=== PATIENT | male | born 1975 | race African-American/Black ===

== ENCOUNTER 2016-05-09 14:28 | Observation (INO) | payer OTHER ==
--- NOTE | ~2016-05-09 | CR72 ---
[facility] A Service of [facility] & [facility] RADIOLOGY TEXT RESULTS PATIENT: SIMÓN PIRES LOCATION: [facility] [id number] : [birth year] UNIT #: [id number] AGE: [address]: Lexx Dhaliwal MD SEX: M ORDER DR: [id number] [facility] [address] [place], [place] [address] [id number] I MR#: [id number] Acc #: [id number] NAME: SIMÓN PIRES : 1975 SEX: M STUDY DATE/TIME: 05/09/2016 14:27 UNIT: [facility] ROOM: 67278 STUDY DESCRIPTION: CR Chest Single View Portable Attending Physician: Lexx Dhaliwal M.D. Ordering Physician: Terrence Santos D.O. Primary Care Physician: Nick Worrell M.D. MEDICAL IMAGING REPORT This report is preliminary unless electronic signature is present EXAM Portable chest HISTORY Shortness of air, chest pain, syncope, onset today. FINDINGS A single AP portable view of the chest shows both lungs to be clear. The heart is normal in size. The mediastinal contour is normal. No significant bone abnormalities are seen. IMPRESSION Normal portable chest. Dictated by... Kinjal Perry M.D. THIS IS AN ELECTRONICALLY VERIFIED REPORT Kinjal Perry M.D. at 05/10/2016 10:04 AM Shy TD: 05/10/2016 06:39 JOB #: [id number] MEDICAL IMAGING REPORT Page 1 of 1 COPY
--- NOTE | ~2016-05-09 | TH ---
Unit #: [id number] #: [id number] Patient: SIMÓN PIRES [id number] [address] [address] [id number] I MR#: [id number] NAME: SIMÓN PIRES : 1975 SEX: M STUDY DATE/TIME: UNIT: C5B ROOM: 554 STUDY DESCRIPTION: Nuclear Study Attending Physician: Lexx Dhaliwal M.D. Primary Care Physician: Nick Worrell M.D. CARDIOLOGY REPORT EXAM Exercise Cardiolite Stress Test - Nuclear Portion PROCEDURE Using technetium 99m labeled Cardiolite, rest and stress SPECT images were obtained. Multiple SPECT images were obtained in various views including horizontal and vertical long axis and short axis views of the left ventricle. Images were obtained by gated SPECT method. The patient was administered 11.77 mCi of Cardiolite at rest. The patient was administered 35.7 mCi of Cardiolite at peak exercise. Total exercise time is 6 minutes 10 seconds. On the stress images, there is normal perfusion noted. The rest images show normal perfusion. Comparing rest and stress images, there no stress-induced ischemia noted. The left ventricular ejection fraction is calculated to be 49%. There is mild global hypokinesis seen. The left ventricular cavity is moderately dilated, both at rest and post stress. CONCLUSION 1. No stress-induced ischemia noted. 2. The left ventricular ejection fraction is calculated to be 49%. 3. There is moderate left ventricular cavity dilatation, both at rest and post stress. 4. Suspicion for mild dilated nonischemic cardiomyopathy. Dictated by... Sammy Cassidy TD: 05/10/2016 11:31 JOB #: [id number] Unit #: [id number] #: [id number] Patient: SIMÓN PIRES CARDIOLOGY REPORT Page 1 of 1 X Anastasia Ritchie MD <ELECTRONICALLY SIGNED> 09/04/16 1429 CARDIOLOGY REPORT
--- NOTE | ~2016-05-09 | CO ---
Unit #: [id number] #: [id number] Patient: SIMÓN PIRES [id number] [facility] [address] [place], [place] [address] [id number] I MR#: [id number] NAME: SIMÓN PIRES ROOM: 554 Age: 40 Sex: M Admission Date: 05/09/2016 : 1975 Attending Physician: Lexx Dhaliwal M.D. Primary Care Physician: Nick Worrell M.D. Consultation Date: 05/10/2016 CONSULTATION REPORT PRIMARY CARE PHYSICIAN REASON FOR CONSULTATION Syncope. PATIENT IDENTIFICATION This is a 40-year-old, right-handed, male, who was evaluated in room 554 at [facility]. SOURCE OF INFORMATION The patient and evaluation initiated by Cardiology. PROBLEM LIST 1. History of congestive heart failure. 2. Hypertension. 3. Hyperlipidemia. 4. Binge drinking of alcohol. 5. Occasional cocaine. 6. Former smoker. HISTORY OF PRESENT ILLNESS This is a 40-year-old gentleman, who actually came yesterday to the emergency room with several syncopal episodes. He reports that his father on 04/23 and since then he has been really depressed. He went on heavy binge drinking on Tuesday and also did "line of cocaine." Yesterday, he was not feeling well, so he called his fiancee and now wanted to go there and he reached there and then he had several episodes of syncope, was in and out for several minutes. The family reported shaking type activity. I really do not have any of those records or family members available. He is fine right now. He is awake and alert and fully oriented. He is otherwise unremarkable. Cardiology is doing workup on him because of his cardiac issues and want to make sure this is not a primary cardiac issue. His vital signs have been stable. He denies change in any medication. He denies any prior seizures. He has not been drinking rather he has been depressed. He has never had any other passing out episodes or withdrawal. Unit #: [id number] #: [id number] Patient: SIMÓN PIRES PAST MEDICAL HISTORY As discussed above. PAST SURGICAL HISTORY As discussed above. ALLERGIES None reported. HOME MEDICATIONS Apparently are Coreg, lisinopril, Norvasc, simvastatin, others ? FAMILY HISTORY Mother had some sort of brain aneurysm. SOCIAL HISTORY He has a fiancee. He has some legal issues. He denies tobacco use. Acknowledges occasional rather binge drinking and he said that he did cocaine after such a long time. REVIEW OF SYSTEMS Otherwise, pretty much unremarkable. No weight issues. No fever, chills, rigor, or sweats. HEENT: No headaches. No double vision, earache, runny nose, or sore throat. CARDIOVASCULAR: No chest pain, clubbing, cyanosis, orthopnea, or palpitation. PULMONARY: No shortness of air, cough, or expectoration. GASTROINTESTINAL: No nausea, vomiting, diarrhea, or constipation. GENITOURINARY: No genitourinary symptoms. EXTREMITIES: No other extremity problems. BACK: No back problem. PSYCHIATRIC: No psychotic issue. NEUROLOGIC: No neurologic issue. No other hematologic, dermatologic, or endocrine issues. He right now is denying any new cardiac issues, but he has had cardiac problems and he may have had some chest discomfort. PHYSICAL EXAMINATION VITAL SIGNS: Temperature 98 degrees Fahrenheit, pulse is 56, respirations 17, blood pressure is 140/91, weight of 235 pounds. BMI was 32. NEUROLOGIC: The patient is awake. He is alert. He is oriented. He can name and he can follow commands. No right or left confusion. No finger agnosia. Cranial nerve examination demonstrates full le of vision to confrontation. Eye movements are conjugate. I did not see any ptosis. I did not see any nystagmus. Extraocular movements are intact. Sensation on the face and scalp are normal. Strength of muscles of facial expression normal. Hearing seemed to be intact bilaterally. Tongue was midline. Uvula was midline. Palate elevations were normal. Head turning and shoulder shrugs were unremarkable. Motor examination demonstrated normal bulk, tone. Strength was essentially 5/5. No pronator drift or fine motor abnormality was seen. Sensory examination intact for soft touch and pain sensation. No Unit #: [id number] #: [id number] Patient: SIMÓN PIRES extinction was seen. Romberg was negative. Gait examination was unremarkable. I could not get any reflexes. Toes are equivocal. DIAGNOSTIC STUDIES IMAGING STUDIES: No brain imaging studies available. No EEG available. LABORATORY RESULTS: His random complete metabolic profile was okay. CBC was unremarkable. Urine drug screen was positive for cocaine. IMPRESSION 1. Several syncopal episodes. 2. I have no prior history of seizures. I do not think he is withdrawing or intoxicated or going through delirium tremens. I will check his EEG. I will check a brain MRI and MRA because of his family history and we will go from there. I am not convinced these are epileptic events and is the drug history accurate, so there are several issues, are these provoked events, what is the chest pain got to do with it, so we are going to look into that and see how things go. We will follow up on the test and we will go from there. Call me for any other questions, issues, or concerns. He did pass out, so loss of consciousness precautions apply. Call me for any other questions, issues, or concerns. Follow up with Neurology as outpatient. Dictated by... Grant Nichole M.D. SANDRA/junaid TD: 05/10/2016 23:35 JOB #: [id number] CONSULTATION REPORT Page 1 of 1 X Grant Nichole MD CONSULTATION REPORT
--- NOTE | ~2016-05-09 | EKG ---
PATIENT: SIMÓN PIRES UNIT #: [id number] Ventricular Rate: 56 BPM Atrial Rate: 56 BPM P-R Interval: 146 ms QRS Duration: 96 ms Q-T Interval: 416 ms QTC Calculation(Bezet): 401 ms P [place]: 28 degrees Calculated R [place]: 24 degrees Calculated T [place]: 4 degrees Diagnosis Line: Sinus bradycardia Diagnosis Line: Otherwise normal ECG Diagnosis Line: No previous ECGs available Diagnosis Line: Confirmed by HECTOR POE MD ([id number]) on 05/11/2016 Diagnosis Line: 10:22:24 PM INTERPRETING MD: LUI BUTTS
--- NOTE | ~2016-05-09 | CT16 ---
[facility] A Service of [facility] RADIOLOGY TEXT RESULTS PATIENT: SIMÓN PIRES LOCATION: [facility] : [birth year] UNIT #: [id number] AGE: [address]: Lexx Dhaliwal MD SEX: M ORDER DR: [id number] [facility] [address] [place], [place] [address] [id number] I MR#: [id number] #: [id number] NAME: SIMÓN PIRES : 1975 SEX: M STUDY DATE/TIME: 05/09/2016 16:25 UNIT: [facility] ROOM: 47344 STUDY DESCRIPTION: CT Angio Chest for PE Attending Physician: Lexx Dhaliwal M.D. Ordering Physician: Terrence Santos D.O. Primary Care Physician: Nick Worrell M.D. MEDICAL IMAGING REPORT This report is preliminary unless electronic signature is present EXAM CT chest PE protocol HISTORY Syncopal episode this morning, chest pain this morning, elevated D-dimer. TECHNIQUE This CT exam was performed with one or more of the following radiation dose reduction techniques: automatic exposure control, adjustment of mA and/or kV according to patient size, and iterative reconstruction. FINDINGS Axial images were performed through the chest following IV contrast. 3-D coronal and sagittal reconstructed images reviewed at a workstation. Pulmonary parenchyma is normal. Normal enhancement of the pulmonary arteries. No evidence of embolus. Heart size within normal limits. Aorta free dissection or aneurysm. Upper abdomen unremarkable. The osseous structures and thoracic inlet appear normal. The extrathoracic soft tissues appear normal. IMPRESSION Negative CT chest PE protocol. Dictated by... Kinjal Perry M.D. THIS IS AN ELECTRONICALLY VERIFIED REPORT Kinjal Perry M.D. at 05/10/2016 10:05 AM Toan TD: 05/10/2016 08:14 JOB #: [id number] [facility] A Service of [facility] RADIOLOGY TEXT RESULTS PATIENT: SIMÓN PIRES LOCATION: [facility] : [birth year] UNIT #: [id number] AGE: [address]: Lexx Dhaliwal MD SEX: M ORDER DR: MEDICAL IMAGING REPORT Page 1 of 1 COPY
--- NOTE | ~2016-05-09 | CO ---
Unit #: [id number] #: [id number] Patient: SIMÓN PIRES [id number] [facility]. [address] [address] [id number] I MR#: [id number] NAME: SIMÓN PIRES ROOM: 554 Age: 40 Sex: M Admission Date: 05/09/2016 : 1975 Attending Physician: Lexx Dhaliwal M.D. Primary Care Physician: Nick Worrell M.D. CONSULTATION REPORT HISTORY OF PRESENT ILLNESS This is a 40-year-old male who was admitted with the complaint of chest pain and syncope. He recently lost his father last week and has not felt well since. He was at his father's house at 11 a.m. when he began to have substernal chest tightness with pressure. There was no radiation to his neck, arm, or jaw. He denied dyspnea or palpitations. He drove himself home which is 10 minutes away. After getting home, he remembers walking through the door but does not remember anything else until EMS was assisting him on a stretcher. He was told by his that he was sitting on the edge of the bed and was noted to be shaking all over. He fell over and was in and out of consciousness. When he woke up, his chest pain and tightness remained. He was brought into the emergency room for evaluation where he was normotensive. His electrocardiogram showed no acute ischemic changes. Orthostatics in the emergency room were normal. He was told that he had a cardiac catheterization at age 32 done at [facility] which was normal. At that time, he was admitted for congestive heart failure. He has been told he had a "weak heart." He is known to have hypertension and hyperlipidemia. He is usually fairly active where he has no symptoms of chest pain or dyspnea. He denies leg edema, paroxysmal nocturnal dyspnea, or orthopnea. The patient was out with his friends on Tuesday. He binge drank alcohol and used cocaine. He has not used cocaine since that time. PAST MEDICAL HISTORY 1. Cardiac catheterization at age 32 done at [facility] told normal. No details available. 2. Congestive heart failure. 3. Hypertension. 4. Hyperlipidemia. 5. Binge ETOH abuse. 6. Occasional cocaine use. 7. Former cigar smoker. PAST SURGICAL HISTORY No previous surgeries. SOCIAL HISTORY The patient is and works as a batcher. He quit smoking Black and Mild cigars four years ago. He binge drinks on occasion and did so on Tuesday. He also used cocaine on Tuesday. FAMILY HISTORY Mother from a brain aneurysm. Father from colon cancer. Unit #: [id number] #: [id number] Patient: SIMÓN PIRES ALLERGIES No known drug allergies. HOME MEDICATIONS 1. Carvedilol 12.5 mg b.i.d. 2. Amlodipine 5 mg daily. 3. Simvastatin 40 mg at bedtime. 4. Lisinopril 20 mg daily. REVIEW OF SYSTEMS CONSTITUTIONAL: Negative for fever or chills. Reports no weight gain or weight loss. HEENT: No headache, hearing or vision changes, or difficulty with swallowing. Denies dizziness. CARDIOVASCULAR: Has no symptoms of angina. Unaware of palpitations. No paroxysmal nocturnal dyspnea or orthopnea. Reports syncope with loss of consciousness. RESPIRATORY: Negative for dyspnea or cough. GASTROINTESTINAL: No abdominal pain, nausea, or vomiting. No constipation or melena. EXTREMITIES: Negative for lower extremity edema. PHYSICAL EXAMINATION VITAL SIGNS: Blood pressure 156/77 and heart rate 73. GENERAL: This is a well-developed, 40-year-old male who is in no acute distress. NEUROLOGIC: He is awake, alert, and oriented without focal weaknesses. NECK: Trachea is midline. No thyromegaly or lymphadenopathy. No jugular venous distention. HEART: S1 and S2 heart sounds are normal. No murmurs, rubs, or clicks. Regular rate and rhythm. LUNGS: Clear to auscultation with rales, rhonchi, or wheeze. ABDOMEN: Soft and nontender with bowel sounds present. EXTREMITIES: Without leg edema. SKIN: Warm and dry. DIAGNOSTIC STUDIES LABORATORY: Troponin less than 0.05 x2 and less than 0.03. TSH is normal. Chemistry and CBC are normal. IMAGING: Chest x-ray shows no active disease. CT of the chest is normal. CARDIOLOGY: EKG shows normal sinus rhythm with no acute ischemic changes. IMPRESSION 1. Chest pain, ruled out for an acute myocardial infarction. 2. Syncope with loss of consciousness of questionable etiology. 3. Rule out seizure. 4. Chronic systolic heart failure. 5. Hypertension. 6. Hyperlipidemia. 7. Cocaine abuse. 8. Ethyl alcohol abuse. PLAN 1. The cause of syncope is unknown. The patient is not orthostatic. TSH is normal. There are no acute EKG changes on EKG. No Unit #: [id number] #: [id number] Patient: SIMÓN PIRES arrhythmias have been seen. 2. Will proceed with exercise Cardiolite stress test to rule out coronary artery disease. 3. Because the patient has a family history of cerebral aneurysm and a syncope episode, will consult Neurology. Syncope could be because of seizures. 4. Obtain 2D echocardiogram to evaluate left ventricular systolic function and to rule out cardiomyopathy. ADDENDUM The patient underwent exercise Cardiolite stress test where he ambulated on the treadmill for more than six minutes. There were no EKG changes. The images showed no ischemia. His ejection fraction was approximately 49%. There was suspicion for nonischemic cardiomyopathy. A 2D echocardiogram found the patient to have an ejection fraction of 40% to 45%. There was mild mitral regurgitation. Dr. Nichole saw the patient and doubt that the patient had any epilepsy. MRI and MRA of the head and neck were ordered. An EEG was also ordered to rule out seizures. However, the patient refused to undergo these procedures. The patient can be discharged home today on his current medication regime with an increase of lisinopril to 20 mg p.o. b.i.d. He is to continue on beta priyanka and Norvasc. The patient has been advised to discontinue alcohol and cocaine use. It has been explained to the patient that continuing these behaviors could worsen his heart failure. The patient will be discharged home today to follow up in the office in six to eight weeks. He is to follow up with Dr. Barrera as an outpatient for further neurological workup. Follow up with his primary care physician as needed. Dictated by... Dharmesh Estrada A.P.R.N. for Sammy Cassidy TD: 05/10/2016 20:55 JOB #: [id number] CONSULTATION REPORT Page 1 of 1 X Dharmesh Estrada APRN CONSULTATION REPORT
[2016-05-09 15:09] LABS: POC - CKMB 1.1 ng/mL (0.0-7.9); POC - TROPONIN <0.05 ng/mL (<=0.05)
[2016-05-09 15:17] LABS: BASOPHIL# 0.2 X10e3 (0-0.3); BASOPHIL% 3.6 % (0-2.5); EOSINOPHIL# 0.1 X10e3 (0-0.7); EOSINOPHIL% 2.2 % (0.0-7.0); HEMATOCRIT 44.2 % (38.0-50.0); HEMOGLOBIN 14.4 gm/dL (13.0-16.0); LYMPHOCYTE# 0.9 X10e3 (1.0-3.5); LYMPHOCYTE% 16.7 % (17.0-45.0); MEAN CELL VOLUME 87.9 FL (83-96); MEAN CORPUSCULAR HEMOGLOBIN 28.6 PG (28-34); MEAN CORPUSCULAR HGB CONC 32.5 g/dL (30-36); MEAN PLATELET VOLUME 9.2 FL (6.5-11.5); MONOCYTE# 0.6 X10e3 (0-1.0); MONOCYTE% 10.5 % (3.0-12.0); NEUTROPHIL# 3.6 X10e3 (1.5-7.1); PLATELET COUNT 227 X10e3 (140-420); RED BLOOD COUNT 5.03 X10e (3.90-5.60); RED CELL DISTRIBUTION WIDTH 14.2 % (11.0-15.5); WHITE BLOOD COUNT 5.4 X10e3 (4.0-10.5)
[2016-05-09 15:20] LABS: DIFF IND NO
[2016-05-09 15:26] LABS: PARTIAL THROMBOPLASTIN TIME 27.2 SECONDS (23.5-31.3); PROTHROMBIN TIME (PATIENT) 10.7 SECONDS (9.6-11.5)
[2016-05-09 15:29] LABS: URINE SOURCE CLEAN CATCH
[2016-05-09 15:35] LABS: URINE APPEARANCE CLEAR; URINE BILIRUBIN NEG (NEG); URINE BLOOD NEG (NEG); URINE COLOR ORANGE; URINE GLUCOSE NEG (NEG); URINE KETONE NEG (NEG); URINE LEUKOCYTE ESTERASE TRACE (NEG); URINE NITRATE NEG (NEG); URINE PH 5.5 (5-8); URINE PROTEIN TRACE (NEG); URINE SPECIFIC GRAVITY 1.017 (1.003-1.035)
[2016-05-09 15:38] LABS: URBCS1 AUWI 0-2 /[HPF] (0-2); URINE BACTERIA AUWI NEG (NEGATIVE); URINE SQUAMOUS EPITHELIAL CELL NONE SEEN /[HPF]; UWBCS1 AUWI 0-2 (0-5)
[2016-05-09 15:38] LABS: ALBUMIN SERUM 4.1 g/dL (3.5-5.0); BILIRUBIN, DIRECT 0.2 mg/dL (0.0-0.2); BILIRUBIN,INDIRECT 0.9 mg/dL (0.0-0.9); BILIRUBIN,TOTAL 1.1 mg/dL (0.2-2.0); CREATININE SERUM 0.8 mg/dL (0.6-1.4); GLOM FILT RATE Estimated 128.7 mL/min (>60); POTASSIUM 3.7 mmol/L (3.5-5.1); PROTEIN TOTAL SERUM 7.3 g/dL (6.0-8.3)
[2016-05-09 15:42] LABS: CULTURE INDICATED? NO
[2016-05-09 15:45] LABS: AMPHETAMINE NEG (NEG); BARBITURATES NEG (NEG); BENZODIAZEPINES NEG (NEG); COCAINE POS (NEG); MARIJUANA NEG (NEG); OPIATES NEG (NEG); TRICYCLIC ANTIDEPRESSANTS NEG (NEG); U METHADONE NEG (NEG)
[2016-05-09 17:32] LABS: POC - CKMB 1.8 ng/mL (0.0-7.9); POC - TROPONIN <0.05 ng/mL (<=0.05)
[2016-05-09] MEDS ORDERED: COREG12.5 MG PO (20:39)
[2016-05-09] MEDS ORDERED: NORVASC PO (20:40)
[2016-05-09] MEDS ORDERED: PRINIVIL20 M1 PO (20:40)
[2016-05-09] MEDS ORDERED: SIMVASTATIN40 MG PO (20:40)
[2016-05-10 00:23] LABS: %MB 0.2 % (0.0-4.0); MB 2.6 ng/ml
[2016-05-10 06:20] LABS: %MB 0.2 % (0.0-4.0); MB 2.2 ng/ml
[2016-05-10 14:05] LABS: HEMATOCRIT 44.5 % (38.0-50.0); HEMOGLOBIN 14.5 gm/dL (13.0-16.0); MEAN CORPUSCULAR HEMOGLOBIN 28.6 PG (28-34); MEAN CORPUSCULAR HGB CONC 32.5 g/dL (30-36); MEAN PLATELET VOLUME 8.7 FL (6.5-11.5); RED BLOOD COUNT 5.06 X10e (3.90-5.60); RED CELL DISTRIBUTION WIDTH 14.1 % (11.0-15.5)
[2016-05-10 14:23] LABS: CALCIUM SERUM 9.3 mg/dL (8.4-10.2); CREATININE SERUM 1.1 mg/dL (0.6-1.4); GLOM FILT RATE Estimated 96.2 mL/min (>60); POTASSIUM 3.4 mmol/L (3.5-5.1)
== END 2016-05-10 20:32 | disposition home or self-care (01) ==
LOC: CED 14:28 → CEDOF 22:18 → C5B 05-10 11:26
PROVIDERS: Emergency Medicine; Internal Medicine Cardiovascular Disease
DX: R55 Syncope and collapse (principal); R07.89 Other chest pain; I11.0 Hypertensive heart disease with heart failure; I50.22 Chronic systolic (congestive) heart failure; E78.5 Hyperlipidemia, unspecified; F14.10 Cocaine abuse, uncomplicated; F10.10 Alcohol abuse, uncomplicated; Z87.891 Personal history of nicotine dependence; I34.0 Nonrheumatic mitral (valve) insufficiency; Z82.49 Family history of ischemic heart disease and other diseases of the circulatory system; Z80.0 Family history of malignant neoplasm of digestive organs
CPT/HCPCS: 36415; 71010; 71275; 78452; 80048; 80076; 80307; 81003; 82550; 82553; 83880; 84484; 85025; 85027; 85379; 85610; 85730; 93005; 93017; 93306; 99285; A9500; G0378; Q9967